=== PATIENT | male | born 1960 | race Caucasian/White ===

== ENCOUNTER 2018-06-09 18:32 | Emergency (ER) | payer MEDICARE, OTHER, SELFPAY ==
[~2018-06-09] VITALS: Ht 170.2 cm; Wt 81.1 kg
[2018-06-09 18:36] VITALS: BP 156/94
[2018-06-09] MEDS ORDERED: OXYcodone/APAP 5/325MG TABLET PO ONE (19:30)
[2018-06-09] MEDS ORDERED: OXYcodone/APAP 5/325MG TABLET ONE (19:50)
== END 2018-06-09 20:15 | disposition home or self-care (01) ==
LOC: ED 19:40
DX: S52.501A Unspecified fracture of the lower end of right radius, initial encounter for closed fracture (principal); S46.811A Strain of other muscles, fascia and tendons at shoulder and upper arm level, right arm, initial encounter; F17.200 Nicotine dependence, unspecified, uncomplicated; W17.89XA Other fall from one level to another, initial encounter; Y93.89 Activity, other specified; Y99.8 Other external cause status; Y92.009 Unspecified place in unspecified non-institutional (private) residence as the place of occurrence of the external cause
CPT/HCPCS: 29105; 29125; 99284